=== PATIENT | female | born 2000 | race Caucasian/White ===

== ENCOUNTER → 2020-03-05 | Outpatient (CLI) | payer BC, OTHER ==
[2020-03-05 16:18] LABS: Basophils # (A) 0.1 k/uL (0-0.2); Basophils % (A) 2 %; Eosinophils # (A) 0.1 k/uL (0-0.7); Eosinophils % (A) 2 %; HCT 37.7 % (34.0-46.0); HGB 12.3 gm/dL (11.4-16.0); Lymphocytes # (A) 1.5 k/uL (1.0-4.8); Lymphocytes % (A) 21 %; MCH 27.1 pg (25.0-35.0); MCHC 32.5 g/dL (31.0-37.0); MCV 83.5 fL (80.0-100.0); Mean Platelet Volume 7.9; Monocytes # (A) 0.5 k/uL (0-1.0); Monocytes % (A) 7 %; Neutrophils # (A) 4.8 k/uL (1.3-7.7); Neutrophils % (A) 67 %; Platelet Count 213 k/uL (150-450); RBC 4.52 m/uL (3.80-5.40); RDW 14.6 % (11.5-15.5); WBC 7.2 k/uL (3.8-10.6)
== END | disposition home or self-care (01) ==
LOC: LABWHC1 15:50
PROVIDERS: ATTEND Obstetrics & Gynecology
DX: Z01.818 Encounter for other preprocedural examination (principal); Q85.00 Neurofibromatosis, unspecified
CPT/HCPCS: 36415; 85025

== ENCOUNTER → 2020-03-10 | Day surgery (SDC) | payer BC, OTHER ==
[2020-03-05 16:01] VITALS: BMI 19.1
--- NOTE | 2020-03-09 10:56 | HP ---
HISTORY AND PHYSICAL HISTORY: This is a 19-year-old 0, young woman who is to be admitted for laparoscopic bilateral tubal ligation with Filshie clips. Her parents are her medical guardians and request permanent sterilization in the form of tubal ligation. The patient's medical history is significant for cognitive and developmental delay with history of neurofibromatosis. For this reason, they are requesting permanent sterilization to avoid unintended . ALLERGIES: None. MEDICATIONS: Clonidine 0.1 mg daily, methylphenidate 54 mg daily. PAST MEDICAL HISTORY: Neurofibromatosis and cognitive impairment. PAST SURGICAL HISTORY: Spinal fusion and removal of brain tumor. PAST TELECOMMUNICATIONS LINE MECHANIC HISTORY: She is a 0. She has regular monthly menses lasting 4-5 days in duration. She has not, nor has she ever been sexually active. No previous Pap smear. FAMILY HISTORY: The patient is adopted, no family history is available. SOCIAL HISTORY: She lives at home and works at the [employer] Negative for tobacco, alcohol, or drug exposure. REVIEW OF SYSTEMS: Menstrual history as noted. Review of systems negative. PHYSICAL EXAM: Blood pressure 128/68, heart rate 77, weight 96 pounds, height 4 feet 8-1/2 inches. In general, this is a pleasant, petite female in no acute distress. Cognitive impairment with discussion is noted; however, she is able to answer many yes and no questions. HEENT: Exam is unremarkable with no palpable lymphadenopathy or thyromegaly. The lungs are clear to auscultation bilaterally and the heart is of regular rate and rhythm. The abdomen is slim, soft and nontender with no scarring. She has no rebound, no guarding and no flank pain. The extremities are free of any gross lesions, edema, or rashes. Pelvic examination is deferred at this time. ASSESSMENT: A 19-year-old 0 female with neurofibromatosis and cognitive impairment, whose family requests permanent surgical sterility. They do have a court order, allowing for this to occur. Long discussion was held with the patient's mother who is her guardian as well as the patient herself regarding what to expect with tubal ligation. Other options for long-term contraception such as intrauterine device or Nexplanon have been reviewed and declined. Risks of the tubal ligation laparoscopically include bleeding, transfusion, infection, laparotomy, damage to bowel, bladder, ureters, major blood vessels or other intraabdominal structures, injury to the uterus or ovaries, anesthesia complications, DVT, PE and/or . The patient's mother verbalizes understanding and she has signed consent for the procedure. While the patient is under anesthetic, we will also do a Pap smear for cervical cancer screening per their request. All questions were answered to the best of my ability and the patient is scheduled for a bilateral laparoscopic tubal ligation with Filshie clips on 03/10/2020. MMNICKOLASL / KIZZYN: [id number] /
[~2020-03-10] MED LIST: BUPIVACAINE (PF) 0.5% 30 ML VIAL SQ ONE; DEXAMETHASONE SOD PHOSPHATE 4 MG/ML 1 ML VIAL IV ONE; GLYCOPYRROLATE 0.2 MG/ML 2 ML VIAL ONE; HYDROmorphone (PF) 1 MG/ML ONE; HYDROmorphone 0.5 MG/0.5 ML SYRINGE IVP PRN; KETOROLAC 15 MG/ML 1 ML VIAL ONE; LIDOCAINE 1% INJ 10MG/ML (20 ML MDV) ONE; METOCLOPRAMIDE 5 MG/ML 2 ML VIAL IVP ONE; METOCLOPRAMIDE 5 MG/ML 2 ML VIAL IVP STA; METOCLOPRAMIDE 5 MG/ML 2 ML VIAL ONE; MIDAZOLAM 2 MG/2 ML VIAL IV PRN; MIDAZOLAM 2 MG/2 ML VIAL ONE; NEOSTIGMINE 1 MG/ML 10 ML VIAL ONE; ONDANSETRON 4 MG/2 ML VIAL IVP ONE; PROPOFOL 10 MG/ML 20 ML VIAL IV ONE; Pre Op ABX Message 1 EACH MISC MISCELLANE ONE; ROCURONIUM 10 MG/ML (10 ML VIAL) IV ONE; SCOPOLAMINE 1.5MG/72HR PATCH TRANSDERM ONE; SUCCINYLCHOLINE CHLORIDE 100 MG/5 ML SYR IV ONE; fentaNYL (PF) 50 MCG/ML 2 ML AMP ONE
[2020-03-10] MEDS: LACTATED RINGERS 1,000 ML IV SCH ×2 (08:59→15:02)
[2020-03-10 11:05] VITALS: TEMP 98.2
--- NOTE | 2020-03-10 11:10 | P.OP ---
Date of Procedure: 03/10/20 Preoperative Diagnosis: Patient's guardian requests permanent sterility Postoperative Diagnosis: Same Procedure(s) Performed: Laparoscopic bilateral tubal occlusion with Filshie clips Repair of hymeneal laceration Anesthesia: NGUYEN Surgeon: Harika Tony Estimated Blood Loss (ml): 5 IV fluids (ml): 450 Urine output (ml): 200 Pathology: none sent Condition: stable Disposition: PACU Indications for Procedure: Patient's legal guardians request surgical sterilization. Operative Findings: Intact hymen. Filmy vaginal adhesions. Normal-appearing nulliparous cervix. On laparoscopy intra-abdominal structures appear grossly normal. Specifically normal-appearing uterus, bilateral fallopian tubes and bilateral ovaries. Description of Procedure: After the patient and her mother were met in the preoperative holding area and all questions were answered, she was taken to the operating room where anesthetic was administered without incident. She was in positioned, prepped a nd draped in the dorsal lithotomy position. Exam under anesthetic revealed an intact hymeneal ring. On bimanual examination on there were some thin adhesions palpable and broken apart in the vaginal canal. The cervix and uterus were otherwise small, mobile and without any other palpable pelvic or adnexal masses. Pediatric 10-Swazi Forbes catheter was placed. With insertion of the speculum the cervix appears normal nulliparous. There is some bleeding noted from a filmy single adhesion that appears to have been from the posterior lip of the cervix to the posterior mid region of the vagina. This is minimally bleeding. The cervix is then grasped with a single-tooth tenaculum and the acorn uterine manipulator is placed. Attention was then turned to the abdominal portion of the procedure. Gloves were changed. A supraumbilical skin incision 5 mm was made. The anterior abdominal wall was grasped and elevated. Veress needle was inserted without difficulty.. Saline drop test indicated intraperitoneal placement. CO2 gas was insufflated with initial filling pressure of 3 mm. Abdomen was insufflated to a total filling pressure of 15 mm. There is needle was removed. The 5 mm optical trocar and camera were then introduced into the abdomen. The patient was placed in Trendelenburg. The under direct visualization the 8 mm suprapubic port was placed with a blade less trocar. Bowel was then swept out of the abdomen. The above findings were noted. The Filshie clip media executive was then introduced. The right fallopian tube was positively identified, carried out to the fimbriated ends on and the clip was applied in the mid ampullary portion completely transecting the tube. Similarly the left fallopian tube was positively identified and carried out to the fimbriated ends. Filshie clip on the left was placed completely transecting the tube in the mid ampullary portion. Filshie clip media executive was removed and both tubes were reinspected and clips noted to be applied completely across the tube. Under direct visualization the suprapubic port was then removed. The abdomen was desufflated of CO2 gas and the supra umbilical port was also removed. Skin incision was closed using 4-0 Vicryl suture and subcu circular fashion. Attention was then returned to the vagina. Instruments were removed. There is a small laceration noted at the 7 o'clock position of the hymeneal ring. This was repaired using a single [id number] of 4-0 Vicryl suture. The rest of the vagina was carefully inspected and no active bleeding was noted. Forbes catheter was removed from the bladder. The patient was awoken from anesthetic without incident and transported recovery area in good condition. All counts reported to me as correct by the operating room staff.
[2020-03-10 11:52] VITALS: RESP 16
[2020-03-10 13:48] VITALS: BP 143/76; PULSE 94
== END ==
LOC: OR 08:18 → EEVIPCON 09:55
PROVIDERS: ATTEND Obstetrics & Gynecology
DX: Z30.2 Encounter for sterilization (principal); R62.59 Other lack of expected normal physiological development in childhood; Q85.00 Neurofibromatosis, unspecified; F90.9 Attention-deficit hyperactivity disorder, unspecified type; Z98.890 Other specified postprocedural states; Z79.899 Other long term (current) drug therapy; N89.5 Stricture and atresia of vagina
CPT/HCPCS: 84703; 58671; J1100; J2765; J2405; J1170